=== PATIENT | female | born 1980 | race Caucasian/White ===

== ENCOUNTER 2016-05-31 10:11 | Emergency (ER) | payer MEDICAID ==
[~2016-05-31] VITALS: Ht 170.2 cm; Wt 77.1 kg
[~2016-05-31 10:11] MED LIST: APAP/BUTALBITAL1 TA1 PO; BENTYL10 MG PO; CARDURA 1MG TAB1 MG PO; EFFEXOR100 MG PO; ELIMITE 5%60 GM/TUBE EX; LEXAPRO 10 MG T10 MG PO; LOPRESSOR 25MG.25 MG PO; LORTAB 5/500 501 TAB PO; NAPROSYN 500MG500 MG PO; ZITHROMAX Z-PA250 M1 PO; ZOLPIDEM 5MG TAB5 MG PO
--- NOTE | 2016-05-31 10:22 | Emergency Room Report ---
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 Clinical Suspician of Infection? Mental Status: Sepsis Risk: Have you (or family members/close friends) recently traveled outside the [place]? If Yes, where/when: Have you had exposure to infectious disease within the past month? TB? Other? Specify: Comment The patient is brought in by ambulance complaining of chest pain. She says that the chest pain began this morning and she describes it as sharp in her LEFT chest, increased with a deep breath. She says that she has also had bad problems with shortness of breath, dizziness, and palpitations for the past 4 days. All of these problems are chronic, she says she has had these problems and she has been [address] Iverson well and his also been seeing Dr. Nieves at [facility]. The loop recorder. She says that she has had extensive testing including an angiogram and a Holter monitor. She does not appear to have good insight into her diagnoses. She says that she has had a severe anxiety attack that gave her a "very small heart attack". She says her angiogram did not show any significant blockages and she has not had any stents placed. She says that she has been told that she has skipped beats of her heart and a low heart rate as well. She has had some sort of ablation procedure but says she is not a candidate for another. She says she gets chest pain at least every week but only comes to the emergency room when it is severe. She received nitroglycerin during transport which she says partially helped. She says her chest pains are associated with shortness of breath, nausea, dizziness, and palpitations. She says she wakes up sweaty every morning. ALLERGIES Coded Allergies: No Known Allergies (10/24/15) Home Medications Reported Medications DABIGATRAN ETEXILATE MESYLATE (Pradaxa) 150 MG PO BID Escitalopram Oxalate (Lexapro 10MG) 20 MG PO DAILY Zolpidem Tartrate (Ambien 5MG) 5 MG PO QHSP PRN SLEEP DILTIAZEM HCL (Diltiazem ER) 120 MG PO BID History Medical History General CAD? No Angina: No HI: No Hypertension? No Hyperlipidemia? No CHF? No DVT? No PE? No COPD? No Asthma? No Anemia? Yes GERD? No Gastric ulcers? No GI Bleed? No Hernia? No Thyroid Problems? No Hypothyroidism? No CVA? No Seizures? No Diabetes? No Insulin Dependent: No Insulin Pump: No Home FSBS? No Renal Insuffiency? No End Stage Renal Disease? No UTI? No Stones? No BPH? No GB Disease: Yes Nephritic Syndrome? No Asplenia? No Hepatitis? No Sickle Cell Disease? No Arthritis? No Migraines? Yes Cataracts? No Glaucoma? No MRSA? No HIV? No TB? No Anxiety? Yes Depression? Yes Cancer? No Additional hx: arrythmia Immunization Hx DT/Tetanus 1-4 YRS Flu Refused Pneumonia Never Had Surgical Hx Previous Surgery?Y Tubal Ligation BILATERAL EAR TUBES LT KNEE, ACL REPAIR GALLBLADDER Family History Family Hx Diabetes Yes CAD Yes Hypertension Yes Hyperlipidemia Yes Cancer Yes TB No Social History Smoking Hx Packs/day < 1 Pack Alcohol Alcohol: No Review of Systems All Other Systems Reviewed and Negative Constitutional diaphoresis, denies fever Respiratory shortness of breath Cardiovascular chest pain, palpitations Psychiatric/Neurological other (appears extremely anxious) Physical Exam Vital Signs Vital Signs Date Time Temp Pulse Resp B/P Pulse O2 O2 Flow FiO2 Ox Delivery Rate 05/31 1110 79 18 126/96 97 05/31 1011 98.4 82 18 152/75 96 General Appearance very anxious Eye Exam - bilateral eye normal exam, bilateral eye PERRL, bilateral eye EOMI Ear, Nose, Throat hearing grossly normal, normal ENT inspection Neck normal inspection, non-tender, supple, full range of motion Respiratory Status Yes: trachea midline, chest symmetrical, non tender chest. No: respiratory distress. Lung Sounds bilateral: normal breath sounds, lungs clear. 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 No Results/Orders Laboratory Tests 05/31/16 1000: Sodium 138, Potassium 3.4 L, Chloride 103, Carbon Dioxide 21 L, BUN 13, Creatinine 0.8, Estimated Creat Clear 117, Estimated GFR (MDRD) 81, Glucose 105, Calcium 8.7, Total Bilirubin 0.2, AST 15, ALT 20, Alkaline Phosphatase 78, Creatine Kinase 71, CK-MB (CK-2) Rel Index 0.7, CK and CKMB Interp < 0.5, Troponin I < 0.02, Total Protein 7.6, Albumin 3.8, Globulin 3.8 H, Albumin/ Globulin Ratio 1.0 L, D-Dimer < 100, WBC 11.3 H, RBC 4.68, Hgb 14.6, Hct 43.4, MCV 92.8, RDW 14.4, Plt Count 326, MPV 9.3, Gran % 78.9, Gran # 8.9 H, Lymphocytes % 15.5, Monocytes % 4.1, Eosinophils % 1.1, Basophils % 0.4, Lymphocytes # 1.8, Monocytes # 0.5, Eosinophils # 0.1, Basophils # 0.1, PUBS MCHC 33.7, MCH 31.3 H Current Medication Orders Sig/Eduardo Start time Last Medication Dose Route Stop Time Status Admin Sodium Chloride 10 ML PRN PRN 05/31 1015 AC IV 06/01 1014 Orders Procedure Date/time Status D-DIMER 05/31 1038 Complete ELECTROCARDIOGRAM REQUEST 05/31 1014 Active CHEST(2 VIEWS-NOT PORTABLE) 05/31 1014 Active IV SALINE LOCK 05/31 1014 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 No acute disease. Progress - 11:30 AM: I spoke with Jah for Dr. Villa. He knows the patient well. She has had an ablation for atrial fibrillation. Initially her palpitations went away, but has since returned. She is had further workup that has shown some ectopy, but does not qualify for further ablations. He believes that she has normal coronary arteries, but he'll look for a cath report and call back. He believes that she has recently been started on Cardizem by Dr. Abad. 11:40 AM: I spoke with Jah again. He cannot find a cardiac cath report, but requests that we discharge the patient to be sent to their office to be seen this afternoon. Departure Departure Disposition DC Home or Self Care(routine) Clinical Impression Primary Impression: Atypical chest pain Condition STABLE Referrals Joaquín HUSTON,Pardeep Cano (Family) Patient Instructions DI for Atypical Chest Pain Additional Instructions Go to Dr. Villa's office now ED Critical Care Critical Care No at [id number]
[2016-05-31 10:23] LABS: HEMOGLOBIN 14.6 g/dL (12.2-16.2); LYMPH # 1.8 K/mm3 (0.7-4.5); LYMPH % 15.5 % (10-50.0)
[2016-05-31] MEDS ORDERED: PRADAXA75 M1 PO (10:27)
[2016-05-31] MEDS ORDERED: LEXAPRO 10 MG T10 MG PO (10:27)
[2016-05-31 10:52] LABS: BUN 13 mg/dL (7-18); GFR (ESTIMATED) 81 ML/MIN (59-)
[2016-05-31] MEDS ORDERED: AMBIEN 5MG TAB5 MG PO (11:32)
[2016-05-31] MEDS ORDERED: DILTIAZEM HYDR120 MG PO (11:33)
[2016-05-31 12:00] VITALS: BP 124/83
--- NOTE | 2016-05-31 14:58 | RADIOLOGY REPORT PS360 ---
CHEST(2 VIEWS-NOT PORTABLE) HISTORY: CHEST PAIN COMPARISON: 05/18/2015 FINDINGS: The cardiomediastinal silhouette and pulmonary vascularity are within normal limits. The lungs are clear without infiltrates, suspicious nodules, or pleural effusions. No acute bony abnormalities. Anterior subcutaneous cardiac monitoring device is present IMPRESSION: Negative chest, no acute finding
== END 2016-05-31 11:59 | disposition home or self-care (01) ==
LOC: ER 10:11
PROVIDERS: Emergency Medicine
DX: R07.89 Other chest pain (principal); I48.91 Unspecified atrial fibrillation; F41.8 Other specified anxiety disorders; R00.2 Palpitations

== ENCOUNTER 2016-08-31 02:10 | Emergency (ER) | payer MEDICAID ==
[~2016-08-31] VITALS: Ht 170.2 cm; Wt 81.6 kg
[~2016-08-31 02:10] MED LIST changes: +AMBIEN 5MG TAB5 MG PO; +DILTIAZEM HYDR120 MG PO; +PRADAXA75 M1 PO
[2016-08-31] MEDS ORDERED: BISOPROLOL 5MG T5 MG PO (02:21)
[2016-08-31] MEDS ORDERED: ASPIRIN 81MG TA81 MG PO (02:22)
[2016-08-31 02:39] LABS: HEMOGLOBIN 15.7 g/dL (12.2-16.2); LYMPH # 3.9 K/mm3 (0.7-4.5); LYMPH % 37.4 % (10-50.0)
--- NOTE | 2016-08-31 02:57 | Emergency Room Report ---
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 N Clinical Suspician of Infection? N Mental Status: 1 - Regular (Normal Baseline) Sepsis Risk:Low Sepsis Risk Have you (or family members/close friends) recently traveled outside the [place]? N If Yes, where/when: Have you had exposure to infectious disease within the past month? N TB? Other? Specify: Source patient, RN notes reviewed, family, EMS, old records Exam Limitations no limitations Comment pt with hx of syncope with hx of card arrthymia and has loop recorder and had ablation for what i understood to be a fib and has pending appt with Cardiac Chest Pain Chest pain indicative of cardiac No Timing/Duration this evening Severity moderate ALLERGIES Coded Allergies: No Known Allergies (10/24/15) Home Medications Reported Medications DABIGATRAN ETEXILATE MESYLATE (Pradaxa) 150 MG PO BID Escitalopram Oxalate (Lexapro 10MG) 20 MG PO DAILY Zolpidem Tartrate (Ambien 5MG) 5 MG PO QHSP PRN SLEEP BISOPROLOL FUMARATE (Bisoprolol 5MG) 5 MG PO DAILY ASPIRIN (Aspirin) 81 MG PO DAILY History Medical History General CAD? No Angina: No ID: No Hypertension? Yes Hyperlipidemia? No CHF? No DVT? No PE? No COPD? No Asthma? No Anemia? Yes GERD? No Gastric ulcers? No GI Bleed? No Hernia? No Thyroid Problems? No Hypothyroidism? No CVA? No Seizures? No Diabetes? No Insulin Dependent: No Insulin Pump: No Home FSBS? No Renal Insuffiency? No End Stage Renal Disease? No UTI? No Stones? No BPH? No GB Disease: Yes Nephritic Syndrome? No Asplenia? No Hepatitis? No Sickle Cell Disease? No Arthritis? No Migraines? Yes Cataracts? No Glaucoma? No MRSA? No HIV? No TB? No Anxiety? Yes Depression? Yes Cancer? 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 Respiratory denies cough, denies shortness of breath, denies wheezing Cardiovascular see HPI, denies chest pain, palpitations, denies syncope Gastrointestinal denies abdominal pain, denies nausea, denies vomiting Genitourinary denies: dysuria, frequency, hesitancy, hematuria. Musculoskeletal denies back pain, denies joint pain, denies joint swelling, denies neck pain Skin denies rash Psychiatric/Neurological denies headache, denies seizure Physical Exam Vital Signs Vital Signs Date Time Temp Pulse Resp B/P Pulse O2 O2 Flow FiO2 Ox Delivery Rate 08/31 0321 58 20 125/72 99 08/31 0244 53 20 133/79 99 08/31 0213 97.9 62 20 146/89 98 - WBC >12,000 or <4,000 or 10% bands? 2 or more SIRS Criteria Met? B/P:133/79 MAP:108 Creatinine >2.0? UA output<0.5ml/kg/hr for 2 hrs? Platelet count >100,000? Lactate >2.0mmol/1? INR >1.2 or PTT > than 60 sec? Evidence of Organ Dysfunction? Provider documented clinical suspician of infection? N Sepsis Criteria Count: 1 Sepsis Risk: Low Sepsis Risk General Appearance no apparent distress Eye Exam - bilateral eye PERRL, bilateral eye EOMI Ear, Nose, Throat normal ENT inspection Neck supple Respiratory Status No: respiratory distress. Cardiovascular regular rate/rhythm, no murmur, no rub Peripheral Pulses Pulses normal Yes Gastrointestinal soft Extremities normal inspection Strength 4 Upper Ext (L), 4 Upper Ext (R), 4 Lower Ext (L), 4 Lower Ext (R) Neurologic alert, cutter out II-XII nml as tested, no motor/sensory deficits Reflexes Reflexes normal No Mental status normal mood/affect Skin intact Medical Decision Making LABS/Meds/Orders Pt receiving controlled substance in ED? No Results/Orders Laboratory Tests 08/31/16 0215: Sodium 141, Potassium 3.6, Chloride 104, Carbon Dioxide 26, BUN 12, Creatinine 0.8, Estimated Creat Clear 124, Estimated GFR (MDRD) 81, Glucose 95, Calcium 9.0 , Creatine Kinase 90, CK-MB (CK-2) Rel Index 0.6, CK and CKMB Interp 0.5, Troponin I < 0.02, WBC 10.4, RBC 4.98, Hgb 15.7, Hct 47.4 H, MCV 95.3, RDW 13.1 , Plt Count 306, MPV 6.6 L, Gran % 53.7, Gran # 5.6, Lymphocytes % 37.4, Monocytes % 5.1, Eosinophils % 3.1, Basophils % 0.6, Lymphocytes # 3.9, Monocytes # 0.5, Eosinophils # 0.3, Basophils # 0.1, PUBS MCHC 33.1, MCH 31.5 H Orders Procedure Date/time Status ELECTROCARDIOGRAM REQUEST 09/01 223 Active CBC WITH AUTO DIFF 09/01 223 Complete CARDIAC ENZYMES 09/01 223 Complete BASIC METABOLIC PROFILE 09/01 223 Complete CM/EKG CM/[facility] ministries director Rhythm Sinus Bradycardia EKG non-spec. ST/Twave chgs Departure Departure Time of Disposition 0304 Disposition DC Home or Self Care(routine) Clinical Impression Primary Impression: Syncope Qualifiers: Syncope type: unspecified Qualified Code: R55 - Syncope and collapse Condition STABLE Referrals Albino Villa MD Patient Instructions DI for Syncope in Adults (Fainting) Additional Instructions see pcp and your card for follow up Discharge Counseling Counseled pt/family regarding diagnosis, test results, follow up needs ED Critical Care Critical Care No at [phone]
--- NOTE | 2016-08-31 02:57 | Emergency Room Report ---
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 N Clinical Suspician of Infection? N Mental Status: 1 - Regular (Normal Baseline) Sepsis Risk:Low Sepsis Risk Have you (or family members/close friends) recently traveled outside the [place]? N If Yes, where/when: Have you had exposure to infectious disease within the past month? N TB? Other? Specify: Source patient, RN notes reviewed, family, EMS, old records Exam Limitations no limitations Comment pt with hx of syncope with hx of card arrthymia and has loop recorder and had ablation for what i understood to be a fib and has pending appt with Cardiac Chest Pain Chest pain indicative of cardiac No Timing/Duration this evening Severity moderate ALLERGIES Coded Allergies: No Known Allergies (10/24/15) Home Medications Reported Medications DABIGATRAN ETEXILATE MESYLATE (Pradaxa) 150 MG PO BID Escitalopram Oxalate (Lexapro 10MG) 20 MG PO DAILY Zolpidem Tartrate (Ambien 5MG) 5 MG PO QHSP PRN SLEEP BISOPROLOL FUMARATE (Bisoprolol 5MG) 5 MG PO DAILY ASPIRIN (Aspirin) 81 MG PO DAILY History Medical History General CAD? No Angina: No SC: No Hypertension? Yes Hyperlipidemia? No CHF? No DVT? No PE? No COPD? No Asthma? No Anemia? Yes GERD? No Gastric ulcers? No GI Bleed? No Hernia? No Thyroid Problems? No Hypothyroidism? No CVA? No Seizures? No Diabetes? No Insulin Dependent: No Insulin Pump: No Home FSBS? No Renal Insuffiency? No End Stage Renal Disease? No UTI? No Stones? No BPH? No GB Disease: Yes Nephritic Syndrome? No Asplenia? No Hepatitis? No Sickle Cell Disease? No Arthritis? No Migraines? Yes Cataracts? No Glaucoma? No MRSA? No HIV? No TB? No Anxiety? Yes Depression? Yes Cancer? 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 Respiratory denies cough, denies shortness of breath, denies wheezing Cardiovascular see HPI, denies chest pain, palpitations, denies syncope Gastrointestinal denies abdominal pain, denies nausea, denies vomiting Genitourinary denies: dysuria, frequency, hesitancy, hematuria. Musculoskeletal denies back pain, denies joint pain, denies joint swelling, denies neck pain Skin denies rash Psychiatric/Neurological denies headache, denies seizure Physical Exam Vital Signs Vital Signs Date Time Temp Pulse Resp B/P Pulse O2 O2 Flow FiO2 Ox Delivery Rate 08/31 0321 58 20 125/72 99 08/31 0244 53 20 133/79 99 08/31 0213 97.9 62 20 146/89 98 - WBC >12,000 or <4,000 or 10% bands? 2 or more SIRS Criteria Met? B/P:133/79 MAP:108 Creatinine >2.0? UA output<0.5ml/kg/hr for 2 hrs? Platelet count >100,000? Lactate >2.0mmol/1? INR >1.2 or PTT > than 60 sec? Evidence of Organ Dysfunction? Provider documented clinical suspician of infection? N Sepsis Criteria Count: 1 Sepsis Risk: Low Sepsis Risk General Appearance no apparent distress Eye Exam - bilateral eye PERRL, bilateral eye EOMI Ear, Nose, Throat normal ENT inspection Neck supple Respiratory Status No: respiratory distress. 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 No Results/Orders Laboratory Tests 08/31/16 0215: Sodium 141, Potassium 3.6, Chloride 104, Carbon Dioxide 26, BUN 12, Creatinine 0.8, Estimated Creat Clear 124, Estimated GFR (MDRD) 81, Glucose 95, Calcium 9.0 , Creatine Kinase 90, CK-MB (CK-2) Rel Index 0.6, CK and CKMB Interp 0.5, Troponin I < 0.02, WBC 10.4, RBC 4.98, Hgb 15.7, Hct 47.4 H, MCV 95.3, RDW 13.1 , Plt Count 306, MPV 6.6 L, Gran % 53.7, Gran # 5.6, Lymphocytes % 37.4, Monocytes % 5.1, Eosinophils % 3.1, Basophils % 0.6, Lymphocytes # 3.9, Monocytes # 0.5, Eosinophils # 0.3, Basophils # 0.1, PUBS MCHC 33.1, MCH 31.5 H Orders Procedure Date/time Status ELECTROCARDIOGRAM REQUEST 09/01 223 Active CBC WITH AUTO DIFF 09/01 223 Complete CARDIAC ENZYMES 09/01 223 Complete BASIC METABOLIC PROFILE 09/01 223 Complete CM/EKG CM/training facilitator Rhythm Sinus Bradycardia EKG non-spec. ST/Twave chgs Departure Departure Time of Disposition 0304 Disposition DC Home or Self Care(routine) Clinical Impression Primary Impression: Syncope Qualifiers: Syncope type: unspecified Qualified Code: R55 - Syncope and collapse Condition STABLE Referrals Albino Villa MD Patient Instructions DI for Syncope in Adults (Fainting) Additional Instructions see pcp and your card for follow up Discharge Counseling Counseled pt/family regarding diagnosis, test results, follow up needs ED Critical Care Critical Care No at 0326
[2016-08-31 03:07] LABS: BUN 12 mg/dL (7-18); GFR (ESTIMATED) 81 ML/MIN (59-)
[2016-08-31 03:31] VITALS: BP 116/68
== END 2016-08-31 03:32 | disposition home or self-care (01) ==
LOC: ER 02:10
PROVIDERS: Emergency Medicine
DX: R55 Syncope and collapse (principal); I10 Essential (primary) hypertension; Z72.0 Tobacco use; F41.8 Other specified anxiety disorders

== ENCOUNTER → 2017-01-24 | Outpatient (CLI) | payer MEDICAID ==
[~2017-01-24] MED LIST changes: +ASPIRIN 81MG TA81 MG PO; +BISOPROLOL 5MG T5 MG PO
[2017-01-24 12:17] LABS: AMPHETAMINES/METAMPHETAMINES NEGATIVE ng/mL (<1000)
[2017-01-28 16:35] LABS: Alprazolam Negative (Cutoff=100); Benzodiazepines Negative ng/mL (Cutoff=100); Clonazepam Negative (Cutoff=100); Flurazepam Negative (Cutoff=100); Lorazepam Negative (Cutoff=100); Midazolam Negative (Cutoff=100); Temazepam Negative (Cutoff=100); Triazolam Negative (Cutoff=100)
== END ==
LOC: LAB 11:18
PROVIDERS: Emergency Medicine
DX: Z79.899 Other long term (current) drug therapy (principal)
CPT/HCPCS: G0480

== ENCOUNTER → 2017-04-25 | Outpatient (CLI) | payer MEDICAID ==
[2017-04-25 16:19] LABS: AMPHETAMINES/METAMPHETAMINES NEGATIVE ng/mL (<1000)
[2017-05-03 16:44] LABS: Alprazolam Negative (Cutoff=100); Benzodiazepines Negative ng/mL (Cutoff=100); Clonazepam Negative (Cutoff=100); Flurazepam Negative (Cutoff=100); Lorazepam Negative (Cutoff=100); Midazolam Negative (Cutoff=100); Temazepam Negative (Cutoff=100); Triazolam Negative (Cutoff=100)
== END ==
LOC: LAB 15:51
PROVIDERS: Emergency Medicine
DX: Z79.899 Other long term (current) drug therapy (principal)
CPT/HCPCS: G0480